=== PATIENT | male | born 1980 | race Caucasian/White ===

== ENCOUNTER 2016-07-13 15:28 | Emergency (ER) | payer OTHER ==
--- NOTE | 2016-07-13 16:22 | ED ---
Headache - HPI Summary HPI Summary: 35M presents with pressure in head during oral sex a couple hours ago. He states that when it happened he felt cold and clammy and that his joints felt heavy but that has resolved. He denies any weakness. He denies any history of headaches. He states that it is not an intense headache just a pressure that wraps around his head. He denies any fever, neck pain, sinus pressure, ear pain. He has never experienced this before. He states the pressure has been constant in intensity vivar. He has family history of aneurysm with father passing away when 60. He does not have a history of HTN. He smoked some marijuana before it happened. He has not eaten anything since last night but did have some juice. She denies any nausea or vomiting. He denies any chest pain or SOB. - History Of Current Complaint Chief Complaint: EDDizziness Stated Complaint: PRESSURE IN HEAD Time Seen by Provider: 07/13/16 16:12 - Allergies/Home Medications Allergies/Adverse Reactions: Allergies Allergy/AdvReac Type Severity Reaction Status Date / Time No Known Allergies Allergy Verified 11/14/13 14:25 PMH/Surg Hx/FS Hx/Imm Hx Endocrine/Hematology History: Denies: Hx Anticoagulant Therapy Cardiovascular History: Denies: Hx Hypertension Infectious Disease History: No Infectious Disease History: Denies: Traveled Outside the [place] in Last 30 Days - Family History Known Family History: Positive: Other - aneurysm - Social History Alcohol Use: Weekly Substance Use Type: Reports: Marijuana Substance Use Comment - Amount & Last Used: occassional Smoking Status (MU): Current Every Day Smoker Review of Systems Negative: Fever Negative: Chest Pain Negative: Shortness Of Breath Positive: Headache - pressure around head. Negative: Weakness All Other Systems Reviewed And Are Negative: Yes Physical Exam Triage Information Reviewed: Yes Vital Signs On Initial Exam: Initial Vitals Temp Pulse Resp BP Pulse Ox 98.4 F 72 18 162/100 100 07/13/16 15:30 07/13/16 15:30 07/13/16 15:30 07/13/16 15:30 07/13/16 15:30 Vital Signs Reviewed: Yes Appearance: Positive: Well-Appearing Skin: Positive: Warm, Dry Head/Face: Positive: Normal Head/Face Inspection Eyes: Positive: Normal, EOMI, OSCAR, Conjunctiva Clear ENT: Positive: Normal ENT inspection, Pharynx normal, TMs normal, Other - no sinus tenderness Neck: Positive: Supple, Nontender, No Lymphadenopathy Respiratory/Lung Sounds: Positive: Clear to Auscultation, Breath Sounds Present Cardiovascular: Positive: Normal, RRR Neurological: Positive: Sensory/Motor Intact, Alert, Oriented to Person Place, Time, CN Intact II-III, Heel to Toe, Finger to Nose - [place] Coma Scale Best Eye Response: 4 - Spontaneous Best Motor Response: 6 - Obeys Commands Best Verbal Response: 5 - Oriented Diagnostics - Vital Signs Vital Signs Temp Pulse Resp BP Pulse Ox 07/13/16 15:35 98.6 F 71 20 162/100 100 07/13/16 15:30 98.4 F 72 18 162/100 100 - Laboratory Result Diagrams: 07/13/16 16:26 07/13/16 16:26 Lab Statement: Any lab studies that have been ordered have been reviewed, and results considered in the medical decision making process. - CT brain CT Interpretation: No Acute Changes CT Interpretation Completed By: Radiologist - EKG No standard instances Cardiac Rate: NL EKG Rhythm: Sinus Rhythm EKG Comparison: No Significant Change - peaked T waves present on previous EKG Re-Evaluation - Re-Evaluation First Eval Re-Evaluation Time: 17:08 Change: Improved Comment: pressure is 1 now. states was more like lightheadness. states remembers had this before and was just dehyradated. Headache Course/Dx - Course Course Of Treatment: 35M presents with lightheadedness and pressure in head for a couple hours. States has had pressure before and it was due to dehyration. states when recevieing oral sex he develop this sudden onset of head pressure that was accompained by cold clammy. CT brain normal. labs normal. dr carolina recommended CTA. CTA normal. patient understands and agrees with plan - Diagnoses Differential Diagnosis/HQI/PQRI: Migraine, Subarachnoid Hemorrhage, Tension Headache Provider Diagnoses: Headache - Physician Notifications Discussed Care Of Patient With: dr carolina Time Discussed With Above Provider: 17:19 - CTA do, does not need LP Discharge - Discharge Plan Condition: Stable Disposition: HOME Patient Education Materials: Acute Headache (ED) Referrals: [facility] [place] PHYSICIAN REFERRAL [Outside] Leta Carolina MD [Medical Doctor] - No Primary Care Phys,NOPCP [Primary Care Provider] - Additional Instructions: Establish care with primary care physician to follow up about high blood pressure. Referral number provided here. Call tomorrow to schedule an appointment this week or early next. Follow up with neurology if symptoms persistent - contact information provided You may take ibuprofen and/or acetaminophen for pain Drink plenty of fluids Return to ED if develop any new or worsening symptoms
[2016-07-13] MEDS ORDERED: NS 0.9% 1000 ML* 1,000 ML IV ONE (16:24)
[2016-07-13] MEDS ORDERED: Acetaminophen TAB* 325 MG PO ONE (16:25)
[2016-07-13 16:34] LABS: Hematocrit 48 % (42-52); Hemoglobin 16.1 g/dl (14.0-18.0); Mean Corpuscular HGB Conc 34 g/dl (31-36); Mean Corpuscular Hemoglobin 31 pg (27-31); Mean Corpuscular Volume 91 fL (80-94); Mean Platelet Volume 8 um3 (7.4-10.4); Red Blood Count 5.22 10^6/ul (4.0-5.4); Red Cell Distribution Width 13 % (10.5-15); White Blood Count 7.8 10^3/ul (3.5-10.8)
--- NOTE | 2016-07-13 16:39 | RAD ---
HISTORY: Head pressure COMPARISONS: November 05, 2013 TECHNIQUE: Multiple contiguous axial CT scans were obtained of the head without intravenous contrast. FINDINGS: HEMORRHAGE/INFARCT: There is no hemorrhage or acute infarct. MASSES/SHIFT: There is no mass or shift. EXTRA-AXIAL SPACES: There are no extra-axial fluid collections. SULCI AND VENTRICLES: The sulci and ventricles are normal in size and position for the patient's stated age. CEREBRUM: There are no focal parenchymal abnormalities. BRAINSTEM: There are no focal parenchymal abnormalities. CEREBELLUM: There are no focal parenchymal abnormalities. VESSELS: The vessels are grossly normal. PARANASAL SINUSES: The paranasal sinuses are clear. ORBITS: The orbits are unremarkable. BONES AND SOFT TISSUE: No bone or soft tissue abnormalities are noted. OTHER: None IMPRESSION: NO ACUTE INTRACRANIAL PATHOLOGY.
[2016-07-13 16:51] LABS: Albumin 4.6 g/dL (3.2-5.2); BUN/Creatinine Ratio 12.9 (8-20); Calcium 9.5 mg/dL (8.6-10.3); EGFR African American 120.3 (>60); EGFR Non-African American 93.6 (>60); Globulin 2.8 g/dL (2-4); Potassium 3.8 mmol/L (3.5-5.0); Total Bilirubin 0.6 mg/dL (0.2-1.0); Total Protein 7.4 g/dL (6.4-8.9)
[2016-07-13] MEDS ORDERED: Iohexol 350* (CONTRAST) 500 ML MDV IV ONE (17:31)
[2016-07-13 17:51] LABS: TSH (Thyroid Stimulating Horm) 0.55 mcIU/mL (0.34-5.60)
--- NOTE | 2016-07-13 19:39 | RAD ---
INDICATION: Headache COMPARISON: CT of the brain 11/05/2013 and 07/13/2016, both with negative findings. TECHNIQUE: A CT angiogram of the head was performed with 80 cc of Omnipaque 350. Contiguous axial sections were obtained from the C1 level through the [place]. Images were reconstructed in the sagittal, coronal planes and in a 3-D volume rendered format. CTA of the brain: The internal carotid, anterior and middle cerebral arteries appear are patent without high grade stenosis or occlusion. The vertebral, basilar and posterior cerebral arteries appear patent without high grade stenosis or occlusion. The posterior communicating arteries appear to be absent bilaterally. No focal luminal filling defect, aneurysm or vascular malformation is seen. IMPRESSION: No acute intracranial abnormality.
[2016-07-13 20:02] VITALS: BP 137/89
== END 2016-07-13 20:01 | disposition home or self-care (01) ==
LOC: ED 15:28
DX: R51 Headache (principal); Z87.891 Personal history of nicotine dependence
CPT/HCPCS: 36415; 70450; 70496; 80053; 83605; 83735; 84443; 84484; 85025; 93005; 96374; 96375; 99283; 99284; A9270-GY; Q9967

== ENCOUNTER 2016-08-20 15:44 | Emergency (ER) | payer SELFPAY ==
[2016-08-20 15:54] VITALS: BP 164/113
== END 2016-08-20 18:17 | disposition left against medical advice (07) ==
LOC: ED 15:44
DX: R53.1 Weakness (principal); Z53.21 Procedure and treatment not carried out due to patient leaving prior to being seen by health care provider
CPT/HCPCS: 93005